=== PATIENT | male | born 1970 ===

== ENCOUNTER 2017-01-11 19:33 | Inpatient (IN) | payer SELFPAY ==
--- NOTE | 2017-01-11 20:24 | ED PDOC ---
HPI: Chest Pain Time Seen by Provider: 01/11/17 20:12 Chief Complaint (Nursing): Chest Pain Chief Complaint (Provider): chest pain History Per: Patient History/Exam Limitations: no limitations Onset/Duration Of Symptoms: Hrs (2) Current Symptoms Are (Timing): Still Present Quality: Pressure Exacerbating Factors: None Additional History Per: Patient Additional Complaint(s): 46 y/o male no past medical history presents with left-sided chest pressure x 2 hours. Patient states he was shoveling snow to dig his car out when symptoms started, along with feeling light-headed and shortness of breath. Patient states he then rested up against the car and "blacked out" for a few moments; states he did not fall to ground. Denies headache, dizziness, fever, nausea/ vomiting, palpitations, recent travel, leg pain/swelling, recent URI symptoms. Past Medical History Reviewed: Historical Data, Nursing Documentation, Vital Signs Vital Signs: Last Vital Signs Temp 98.3 F 01/11/17 23:05 Pulse 90 01/11/17 23:05 Resp 20 01/11/17 23:05 BP 104/67 01/11/17 23:05 Pulse Ox 96 01/11/17 23:05 - Medical History PMH: No Chronic Diseases - Family History Family History: States: Unknown Family Hx - Living Arrangements Living Arrangements: With Family - Social History Current smoker - smoking cessation education provided: No Alcohol: None Drugs: Denies - Home Medications Home Medications: Ambulatory Orders Medication Instructions Recorded No Known Home Med 01/11/17 - Allergies Allergies/Adverse Reactions: Allergies Allergy/AdvReac Type Severity Reaction Status Date / Time No Known Allergies Allergy Verified 01/11/17 19:39 Review of Systems ROS Statement: Except As Marked, All Systems Reviewed And Found Negative Cardiovascular: Positive for: Chest Pain Respiratory: Positive for: Shortness of Breath Physical Exam - Reviewed Nursing Documentation Reviewed: Yes Vital Signs Reviewed: Yes - Physical Exam Appears: Positive for: Well, Non-toxic, Uncomfortable Head Exam: Positive for: ATRAUMATIC, NORMAL INSPECTION, NORMOCEPHALIC Skin: Positive for: Normal Color Eye Exam: Positive for: Normal appearance ENT: Positive for: Normal ENT Inspection Cardiovascular/Chest: Positive for: Regular Rate, Rhythm Respiratory: Positive for: Normal Breath Sounds Gastrointestinal/Abdominal: Positive for: Normal Exam Back: Positive for: Normal Inspection Extremity: Positive for: Normal ROM Neurologic/Psych: Positive for: Alert, Oriented - Laboratory Results Result Diagrams: 01/11/17 21:00 01/11/17 21:00 - ECG ECG: Positive for: Viewed By Me (reviewed by ED attending) ECG Rhythm: Positive for: Sinus Rhythm O2 Sat by Pulse Oximetry: 99 - Radiology X-Ray: Viewed By Me X-Ray Interpretation: No Acute Disease - Progress ED Course And Treament: labs, ekg, chest xray, ASA PO, nitro SL On re-eval, patient resting comfortably; states pain improved. Case discussed with ED attending Dr. Randhawa, who agrees with plan to place in observation. Case discussed with Dr. Vergara, Hospitalist on-call, for admission. Disposition - Clinical Impression Clinical Impression: Chest pain, Syncope - Patient ED Disposition Is Patient to be Admitted: Yes - Disposition Disposition Time: 22:27 Condition: FAIR - Pt Status Changed To: Hospital Disposition Of: Observation
[2017-01-11 21:09] LABS: BASO % 0.3 % (0.0-2.0); EOS % 0.1 % (0.0-4.0); LYMPH # 1.3 K/uL (1.0-4.3); LYMPH % 8.9 % (20.0-40.0); MEAN CORPUSCULAR HEMOGLOBIN 30.1 pg (27.0-31.0); MEAN PLATELET VOLUME 8.1 fl (7.2-11.7); MONO # 0.7 K/uL (0.0-0.8); MONO % 4.9 % (0.0-10.0); NEUT # 12.5 K/uL (1.8-7.0); NEUT % 85.8 % (50.0-75.0); PLATELET COUNT 238 K/uL (130-400); RED CELL DISTRIBUTION WIDTH 13.5 % (11.5-14.5); WHITE BLOOD COUNT 14.5 K/uL (4.8-10.8)
[2017-01-11 21:20] LABS: ALB/GLOB RATIO 1.1 (1.0-2.1); ALKALINE PHOSPHATASE 118 U/L (38-126); ALT/SGPT 39 U/L (21-72); AST/SGOT 27 U/L (17-59); BILIRUBIN,TOTAL 0.5 mg/dl (0.2-1.3); BLOOD UREA NITROGEN 12 mg/dl (9-20); CALCIUM 9.7 mg/dL (8.4-10.2); CARBON DIOXIDE 23 mmol/L (22-30); CHLORIDE 102 mmol/L (98-107); GFR AFRICAN-AMERICAN > 60; GLUCOSE,RANDOM 113 mg/dL (75-110); SODIUM 138 mmol/l (132-148); TOTAL PROTEIN 8.5 G/DL (6.3-8.2)
[2017-01-11 22:43] VITALS: BMI 30.9
--- NOTE | 2017-01-11 22:51 | CP.PCM.HP ---
History of Present Illness - History of Present Illness History of Present Illness: CC: CP, LOC HPI: This is a 46 y/o male with no chronic medical history who comes in with L sided CP which started about 2 hours ago while he was shovelling snow. He noted that while he was shovelling, he also had LH and SOB. He stopped to rest while shovelling and may have had a brief episode of LOC, though no fall or head trauma. never had symptoms like this before. Denies f/c/n/v/d. Never had these symptoms before. ROS: 14 systems reviewed, negative other than HPI MHx: None SHx: Allergies: NKDA Medications: None Family Hx: no relevant findings on review Social Hx: Lives Present on Admission - Present on Admission Any Indicators Present on Admission: No Past Patient History - Past Social History Alcohol: None Drugs: Denies - PSYCHIATRIC Hx Substance Use: No Meds Allergies/Adverse Reactions: Allergies Allergy/AdvReac Type Severity Reaction Status Date / Time No Known Allergies Allergy Verified 01/11/17 19:39 Physical Exam - Constitutional Appears: No Acute Distress - Head Exam Head Exam: ATRAUMATIC, NORMOCEPHALIC - Eye Exam Eye Exam: EOMI, PERRL - ENT Exam ENT Exam: Mucous Membranes Moist - Neck Exam Neck exam: Positive for: Full Rom - Respiratory Exam Respiratory Exam: Clear to Auscultation Bilateral, NORMAL BREATHING PATTERN - Cardiovascular Exam Cardiovascular Exam: REGULAR RHYTHM, +S1, +S2 - GI/Abdominal Exam GI & Abdominal Exam: Hyperactive Bowel Sounds, Soft - Extremities Exam Extremities exam: Positive for: full ROM, normal inspection - Neurological Exam Neurological exam: Alert, Motor Sensory Deficit, Oriented x3 - Psychiatric Exam Psychiatric exam: Normal Affect, Normal Mood - Skin Skin Exam: Dry, Warm Results - Vital Signs Recent Vital Signs: Last Vital Signs Temp 97.5 F L 01/11/17 19:39 Pulse 90 01/11/17 19:39 Resp 16 01/11/17 19:39 BP 109/70 01/11/17 19:39 Pulse Ox 99 01/11/17 22:30 - Labs Result Diagrams: 01/11/17 21:00 01/11/17 21:00 Labs: Laboratory Results - last 24 hr 01/11/17 21:00 WBC 14.5 H RBC 5.35 Hgb 16.1 Hct 46.0 MCV 86.0 MCH 30.1 MCHC 35.0 RDW 13.5 Plt Count 238 MPV 8.1 Neut % (Auto) 85.8 H Lymph % (Auto) 8.9 L Bos[place] % (Auto) 4.9 Eos % (Auto) 0.1 Baso % (Auto) 0.3 Neut # 12.5 H Lymph # 1.3 Bosque # 0.7 Eos # 0.0 Baso # 0.0 Sodium 138 Potassium 4.0 Chloride 102 Carbon Dioxide 23 Anion Gap 16 BUN 12 Creatinine 1.3 Est GFR ( Amer) > 60 Est GFR (Non-Af Amer) 60 Random Glucose 113 H Calcium 9.7 Total Bilirubin 0.5 AST 27 ALT 39 Alkaline Phosphatase 118 Troponin I 0.0330 Total Protein 8.5 H Albumin 4.5 Globulin 4.0 H Albumin/Globulin Ratio 1.1 - EKG Data EKG Interpreted by: Myself EKG shows normal: Sinus rhythm Rate: Normal - EKG Data EKG comments: appears to have some diffuse STD in lateral leads Assessment & Plan (1) Chest pain Assessment and Plan: 46 y/o male with no MHx presenting with CP and LOC in setting of shovelling snow. -Admit to tele obs -Serial trops, Lipids in AM -Repeat EKG in AM -Echo in AM -ASA daily, SLNG PRN -SCDs for DVT PPx Status: Acute (2) Syncope Status: Acute (3) DVT prophylaxis Status: Acute
[2017-01-11 22:55] LABS: NEUTROPHIL 83 % (42-75); TOTAL CELLS COUNTED 100
[2017-01-11 22:59] LABS: LARGE PLATELETS PRESENT
[2017-01-12 06:39] LABS: BASO % 0.1 % (0.0-2.0); EOS % 0.1 % (0.0-4.0); HEMATOCRIT 43.6 % (35.0-51.0); LYMPH # 1.6 K/uL (1.0-4.3); LYMPH % 13.1 % (20.0-40.0); MEAN CELL VOLUME 87.7 fl (80.0-94.0); MEAN CORPUSCULAR HEMOGLOBIN 29.7 pg (27.0-31.0); MEAN CORPUSCULAR HGB CONC 33.9 g/dL (33.0-37.0); MEAN PLATELET VOLUME 8.5 fl (7.2-11.7); MONO # 0.7 K/uL (0.0-0.8); MONO % 5.8 % (0.0-10.0); NEUT # 9.7 K/uL (1.8-7.0); NEUT % 80.9 % (50.0-75.0); NRBC % 0.1 % (0.0-0.0); RED CELL DISTRIBUTION WIDTH 13.8 % (11.5-14.5)
[2017-01-12 06:52] LABS: BLOOD UREA NITROGEN 13 mg/dl (9-20); CALCIUM 9.1 mg/dL (8.4-10.2); CARBON DIOXIDE 20 mmol/L (22-30); CHLORIDE 105 mmol/L (98-107); CHOLESTEROL 236 mg/dL (0-199); GFR AFRICAN-AMERICAN > 60; GLUCOSE,RANDOM 127 mg/dL (75-110); POTASSIUM 4.4 MMOL/L (3.6-5.0); SODIUM 143 mmol/l (132-148)
[2017-01-12] MEDS ORDERED: Enoxaparin 100 mg Syringe SC STA (07:35)
--- NOTE | 2017-01-12 08:23 | CP.PCM.CON ---
History of Present Illness - History of Present Illness History of Present Illness: HPI: This is a 46 y/o male with no chronic medical history who comes in with L sided CP which started about 2 hours ago while he was shovelling snow. He noted that while he was shovelling, he also had LH and SOB. He stopped to rest while shovelling and may have had a brief episode of LOC, though no fall or head trauma. never had symptoms like this before. Denies f/c/n/v/d. Never had these symptoms before. Troponin: + 7.30 EKG: ? Inferior wall changes The patient's Hx is significant and should have catherization Spoke with Dr Mason Past Patient History - Past Medical History & Family History Past Medical History?: No - Past Social History Smoking Status: Never Smoked - MUSCULOSKELETAL/RHEUMATOLOGICAL Hx Falls: No - PSYCHIATRIC Hx Substance Use: No Meds Allergies/Adverse Reactions: Allergies Allergy/AdvReac Type Severity Reaction Status Date / Time No Known Allergies Allergy Verified 01/11/17 19:39 - Medications Medications: Current Medications Acetaminophen (Tylenol 325mg Tab) 650 mg PO Q6 PRN PRN Reason: Pain, Mild (1-3) Aspirin (Aspirin) 325 mg PO DAILY [facility] Nitroglycerin (Nitrostat Sl Tab) 0.4 mg SL Q5M PRN PRN Reason: chest pain Results - Vital Signs Recent Vital Signs: Last Vital Signs Temp 98.6 F 01/12/17 05:00 Pulse 99 H 01/12/17 05:00 Resp 20 01/12/17 05:00 BP 99/63 L 01/12/17 05:00 Pulse Ox 98 01/12/17 05:00 - Labs Result Diagrams: 01/12/17 05:40 01/12/17 05:40 Labs: Laboratory Results - last 24 hr 01/12/17 05:40 WBC 12.0 H RBC 4.97 Hgb 14.8 Hct 43.6 MCV 87.7 MCH 29.7 MCHC 33.9 RDW 13.8 Plt Count 245 MPV 8.5 Neut % (Auto) 80.9 H Lymph % (Auto) 13.1 L Wolfe % (Auto) 5.8 Eos % (Auto) 0.1 Baso % (Auto) 0.1 Neut # 9.7 H Lymph # 1.6 Wolfe # 0.7 Eos # 0.0 Baso # 0.0 Sodium 143 Potassium 4.4 Chloride 105 Carbon Dioxide 20 L Anion Gap 22 H BUN 13 Creatinine 1.1 Est GFR ( Amer) > 60 Est GFR (Non-Af Amer) > 60 Random Glucose 127 H Calcium 9.1 Troponin I 7.3000 H* Triglycerides 437 H Cholesterol 236 H LDL Cholesterol Direct 58 HDL Cholesterol 33
--- NOTE | 2017-01-12 09:01 | CP.PCM.PN ---
Subjective - Date & Time of Evaluation Date of Evaluation: 01/12/17 Time of Evaluation: 08:00 - Subjective Subjective: mild chest pain , better than on admission no palpitation no SOB no abd pain Discussed test results- , discussed need for cardiac cath Objective - Vital Signs/Intake and Output Vital Signs (last 24 hours): Temp Pulse Resp BP Pulse Ox 98.6 F 77 18 100/62 96 01/12/17 08:15 01/12/17 08:30 01/12/17 08:15 01/12/17 08:30 01/12/17 08:15 - Medications Medications: Current Medications Acetaminophen (Tylenol 325mg Tab) 650 mg PO Q6 PRN PRN Reason: Pain, Mild (1-3) Aspirin (Aspirin) 325 mg PO DAILY [facility] Last Admin: 01/12/17 08:48 Dose: 325 mg Nitroglycerin (Nitrostat Sl Tab) 0.4 mg SL Q5M PRN PRN Reason: chest pain - Labs Labs: 01/12/17 05:40 01/12/17 05:40 - Constitutional Appears: No Acute Distress - Head Exam Head Exam: ATRAUMATIC, NORMAL INSPECTION, NORMOCEPHALIC - Eye Exam Eye Exam: EOMI, Normal appearance, PERRL Pupil Exam: NORMAL ACCOMODATION - ENT Exam ENT Exam: Mucous Membranes Moist, Normal External Ear Exam - Neck Exam Neck Exam: Full ROM. absent: Meningismus - Respiratory Exam Respiratory Exam: NORMAL BREATHING PATTERN. absent: Respiratory Distress - Cardiovascular Exam Cardiovascular Exam: REGULAR RHYTHM, +S1, +S2 - GI/Abdominal Exam GI & Abdominal Exam: Soft, Normal Bowel Sounds. absent: Tenderness - Extremities Exam Extremities Exam: Full ROM, Normal Capillary Refill. absent: Calf Tenderness, Pedal Edema - Back Exam Back Exam: Full ROM, NORMAL INSPECTION. absent: CVA tenderness (L), CVA tenderness (R) - Neurological Exam Neurological Exam: Alert, Awake, CN II-XII Intact, Normal Gait, Oriented x3 Neuro motor strength exam: Left Upper Extremity: 5, Right Upper Extremity: 5, Left Lower Extremity: 5, Right Lower Extremity: 5 - Psychiatric Exam Psychiatric exam: Normal Affect, Normal Mood - Skin Skin Exam: Dry, Normal Color, Warm Assessment and Plan (1) NSTEMI (non-ST elevated myocardial infarction) Status: Acute - Assessment and Plan (Free Text) Assessment: 46 y/o gent, no significant PMH, came in bec of chest pain after shoveling snow . EKG showed ST depression inferior leads, Troponin elevation to 7 and hypertriglyceridemia. 1. NSTEMI - 2nd Trop = 7 -Cardio consulted- discussed case with dr Edgar, - rec Cardiac cath . Dr Erica Ellis consulted - started on ASA, loaded with Plavix, Lovenox therapeutic dose , high dose statin, and BB - plan for Cardiac cath in am
--- NOTE | 2017-01-12 10:08 | RAD ---
HISTORY: chest pain COMPARISON: None available. TECHNIQUE: Chest, one view. FINDINGS: LUNGS: No focal consolidation. Please note that chest x-ray has limited sensitivity for the detection of pulmonary masses. PLEURA: No significant pleural effusion identified. No definite pneumothorax . CARDIOVASCULAR: Heart size appears within normal limits. The aorta appears uncoiled, likely exaggerated by patient obliquity. OSSEOUS STRUCTURES: No acute osseous abnormality identified. VISUALIZED UPPER ABDOMEN: Unremarkable. OTHER FINDINGS: None. IMPRESSION: No focal consolidation, significant pleural effusion, or definite pneumothorax identified.
--- NOTE | 2017-01-12 15:02 | CP.PCM.PN ---
Subjective - Date & Time of Evaluation Date of Evaluation: 01/12/17 Time of Evaluation: 15:00 - Subjective Subjective: patient seen/examined. No PMH presents with angina. second troponin 7. initial EKG shows sinus rhythm with inferior infarction. currently chest pain free. Plan: ASA/Plavix/statin/lovenox. NPO after midnight for cardiac cath tomorrow. Objective - Vital Signs/Intake and Output Vital Signs (last 24 hours): Temp Pulse Resp BP Pulse Ox 98.3 F 75 18 114/74 97 01/12/17 12:00 01/12/17 12:00 01/12/17 12:00 01/12/17 12:00 01/12/17 12:00 - Medications Medications: Current Medications Acetaminophen (Tylenol 325mg Tab) 650 mg PO Q6 PRN PRN Reason: Pain, Mild (1-3) Aspirin (Aspirin) 325 mg PO DAILY [facility] Last Admin: 01/12/17 08:48 Dose: 325 mg Clopidogrel Bisulfate (Plavix) 75 mg PO DAILY [facility] Enoxaparin Sodium (Lovenox) 90 mg SC Q12 SYLVIE PRN Reason: Protocol Famotidine (Pepcid) 20 mg PO BID [facility] Last Admin: 01/12/17 11:06 Dose: 20 mg Nitroglycerin (Nitrostat Sl Tab) 0.4 mg SL Q5M PRN PRN Reason: chest pain - Labs Labs: PT 11.2 SECONDS (9.6-11.2) 01/12/17 12:59 INR 1.08 (0.92-1.08) 01/12/17 12:59 APTT 31.0 SECONDS (23.3-32.5) 01/12/17 12:59
[2017-01-12] MEDS ORDERED: Hydrocortisone- 200 MG in Sodium Chloride 0.9% 100 ML IV STA (18:20)
[2017-01-12] MEDS ORDERED: Enoxaparin 100 mg Syringe SC SCH (21:00)
[2017-01-12 23:36] VITALS: RESP 20
[2017-01-13] MEDS ORDERED: Hydrocortisone- 200 MG in Sodium Chloride 0.9% 100 ML IV ONE ×2 (00:01→06:00)
[2017-01-13] MEDS ORDERED: DiphenhydrAMINE 50 mg/ml Inj IVP ONE (06:30)
[2017-01-13 07:03] LABS: HEMATOCRIT 44.9 % (35.0-51.0); MEAN CELL VOLUME 89.3 fl (80.0-94.0); MEAN CORPUSCULAR HEMOGLOBIN 30.3 pg (27.0-31.0); RED CELL DISTRIBUTION WIDTH 13.6 % (11.5-14.5); WHITE BLOOD COUNT 10.1 K/uL (4.8-10.8)
[2017-01-13 08:19] LABS: BLOOD UREA NITROGEN 19 mg/dl (9-20); CALCIUM 9.1 mg/dL (8.4-10.2); CARBON DIOXIDE 23 mmol/L (22-30); CHLORIDE 105 mmol/L (98-107); GFR AFRICAN-AMERICAN > 60; GLUCOSE,RANDOM 148 mg/dL (75-110); POTASSIUM 4.3 MMOL/L (3.6-5.0); SODIUM 143 mmol/l (132-148)
--- NOTE | 2017-01-13 15:07 | CP.PCM.DIS ---
Provider - Provider Date of Admission: 01/12/17 10:40 Attending physician: Ana Vergara MD Primary care physician: NO FAMILY PROVIDER Consults: Cardiology Dr. Sonal Ellis Time Spent in preparation of Discharge (in minutes): 20 Hospital Course - Lab Results Lab Results: Most Recent Lab Values WBC 10.1 K/uL (4.8-10.8) 01/13/17 05:45 RBC 5.03 Mil/uL (4.40-5.90) 01/13/17 05:45 Hgb 15.2 g/dL (12.0-18.0) 01/13/17 05:45 Hct 44.9 % (35.0-51.0) 01/13/17 05:45 MCV 89.3 fl (80.0-94.0) 01/13/17 05:45 MCH 30.3 pg (27.0-31.0) 01/13/17 05:45 MCHC 34.0 g/dL (33.0-37.0) 01/13/17 05:45 RDW 13.6 % (11.5-14.5) 01/13/17 05:45 Plt Count 228 K/uL (130-400) 01/13/17 05:45 MPV 8.5 fl (7.2-11.7) 01/12/17 05:40 Neut % (Auto) 80.9 % (50.0-75.0) H 01/12/17 05:40 Lymph % (Auto) 13.1 % (20.0-40.0) L 01/12/17 05:40 [place] % (Auto) 5.8 % (0.0-10.0) 01/12/17 05:40 Eos % (Auto) 0.1 % (0.0-4.0) 01/12/17 05:40 Baso % (Auto) 0.1 % (0.0-2.0) 01/12/17 05:40 Neut # 9.7 K/uL (1.8-7.0) H 01/12/17 05:40 Lymph # 1.6 K/uL (1.0-4.3) 01/12/17 05:40 [place] # 0.7 K/uL (0.0-0.8) 01/12/17 05:40 Eos # 0.0 K/uL (0.0-0.7) 01/12/17 05:40 Baso # 0.0 K/uL (0.0-0.2) 01/12/17 05:40 Neutrophils % (Manual) 83 % (42-75) H 01/11/17 21:00 Band Neutrophils % 2 % (0-2) 01/11/17 21:00 Lymphocytes % (Manual) 11 % (20-50) L 01/11/17 21:00 Monocytes % (Manual) 4 % (0-10) 01/11/17 21:00 Platelet Estimate Normal (NORMAL) 01/11/17 21:00 Large Platelets Present 01/11/17 21:00 PT 11.2 SECONDS (9.6-11.2) 01/12/17 12:59 INR 1.08 (0.92-1.08) 01/12/17 12:59 APTT 31.0 SECONDS (23.3-32.5) 01/12/17 12:59 Sodium 143 mmol/l (132-148) 01/13/17 05:45 Potassium 4.3 MMOL/L (3.6-5.0) 01/13/17 05:45 Chloride 105 mmol/L (98-107) 01/13/17 05:45 Carbon Dioxide 23 mmol/L (22-30) 01/13/17 05:45 Anion Gap 20 (10-20) 01/13/17 05:45 BUN 19 mg/dl (9-20) 01/13/17 05:45 Creatinine 1.3 mg/dL (0.8-1.5) 01/13/17 05:45 Est GFR ( Amer) > 60 01/13/17 05:45 Est GFR (Non-Af Amer) 60 01/13/17 05:45 Random Glucose 148 mg/dL (75-110) H 01/13/17 05:45 Calcium 9.1 mg/dL (8.4-10.2) 01/13/17 05:45 Total Bilirubin 0.5 mg/dl (0.2-1.3) 01/11/17 21:00 AST 27 U/L (17-59) 01/11/17 21:00 ALT 39 U/L (21-72) 01/11/17 21:00 Alkaline Phosphatase 118 U/L (38-126) 01/11/17 21:00 Troponin I 15.2000 ng/mL (0.00-0.120) H* 01/13/17 05:45 Total Protein 8.5 G/DL (6.3-8.2) H 01/11/17 21:00 Albumin 4.5 g/dL (3.5-5.0) 01/11/17 21:00 Globulin 4.0 gm/dL (2.2-3.9) H 01/11/17 21:00 Albumin/Globulin Ratio 1.1 (1.0-2.1) 01/11/17 21:00 Triglycerides 437 mg/DL (0-149) H 01/12/17 05:40 Cholesterol 236 mg/dL (0-199) H 01/12/17 05:40 LDL Cholesterol Direct 58 mg/dL (0-129) 01/12/17 05:40 HDL Cholesterol 33 MG/DL (30-70) 01/12/17 05:40 - Hospital Course Hospital Course: 46 year old male who was admitted on 01/11/17 for evaluation of Left Sided Chest Pain after he shoveled snow. His troponin #2 elevated at 7.3 and troponin #3 elevated 25.7. He was taken to [facility] for Cardiac Catheterization morning of 01/13/17 at 7 AM before I could I see him. Nurse Julianne on informed me that the patient was transferred from [facility] [place] [facility] was found to have 100% occlusion of RCA and would not be returning to [facility]. Jose Brizuela D.O. Discharge Exam - Head Exam Head Exam: ATRAUMATIC, NORMAL INSPECTION, NORMOCEPHALIC Discharge Plan - Follow Up Plan Condition: FAIR Disposition: HOME/ ROUTINE Referrals: FAMILY PROVIDER,NO [Primary Care Provider] -
[2017-01-13 16:58] VITALS: BP 97/61; PULSE 66; TEMP 98.5; O2SAT 100
--- NOTE | 2017-01-13 17:57 | CARD ---
APPROVED REPORT EXAM: Two-dimensional and M-mode echocardiogram with Doppler and color Doppler. Other Information Quality : GoodRhythm : NSR INDICATION Chest Pain 2D DIMENSIONS IVSd0.76 (0.7-1.1cm)LVDd3.77 (3.9-5.9cm) LVOT Diameter2.20 (1.8-2.4cm)PWd0.63 (0.7-1.1cm) IVSs1.23 (0.8-1.2cm)LVDs2.93 (2.5-4.0cm) FS (%) 22.2 %PWs1.04 (0.8-1.2cm) M-Mode DIMENSIONS Left Atrium (MM)3.81 (2.5-4.0cm)IVSd0.83 (0.7-1.1cm) Aortic Root2.76 (2.2-3.7cm)LVDd4.96 (4.0-5.6cm) Aortic Cusp Exc.1.93 (1.5-2.0cm)PWd0.83 (0.7-1.1cm) IVSs1.13 cmFS (%) 29 % LVDs3.53 (2.0-3.8cm)PWs1.19 cm Mitral Valve MV E Kpsgcyui96.5cm/sMV DECEL [id number] A Pcdzumbe35.9cm/s MV LWO32zeY/A ratio1.1MVA (PHT)4.58cm2 TDI Lateral E' Peak V9.61cm/sMedial E' Peak V9.04cm/sE/Lateral E'6.9 E/Medial E'7.4 Tricuspid Valve TR Peak [id number]/sRAP [id number] Peak Gr.16mmHg [id number] LEFT VENTRICLE The left ventricle is normal size. There is normal left ventricular wall thickness. The left ventricular function is normal. The left ventricular ejection fraction is 55% There is normal LV segmental wall motion. The left ventricular diastolic function is normal. No left ventricle thrombus noted on this study. There is no ventricular septal defect visualized. There is no left ventricular aneurysm. There is no mass noted in the left ventricle. RIGHT VENTRICLE The right ventricle is mildly dilated. There is normal right ventricular wall thickness. Systolic function is mildly reduced. ATRIA The left atrium size is normal. The right atrium size is normal. The interatrial septum is intact with no evidence for an atrial septal defect. AORTIC VALVE The aortic valve is normal in structure and function. No aortic regurgitation is present. There is no aortic valvular stenosis. There is no aortic valvular vegetation. MITRAL VALVE The mitral valve is normal in structure and function. There is no evidence of mitral valve prolapse. There is no mitral valve stenosis. Mitral regurgitation is mild. TRICUSPID VALVE The tricuspid valve is normal in structure and function. There is mild to moderate tricuspid regurgitation. Right ventricular systolic pressure is estimated at less than 30 mmHg. There is no tricuspid valve prolapse or vegetation. There is no tricuspid valve stenosis. PULMONIC VALVE The pulmonary valve is normal in structure and function. There is no pulmonic valvular regurgitation. There is no pulmonic valvular stenosis. GREAT VESSELS The aortic root is normal in size. The ascending aorta is normal in size. IVC Doppler evaluation reveals systolic blunting. PERICARDIAL EFFUSION The pericardium appears normal. There is no pleural effusion. <Conclusion> Normal LV Systolic Function LVEF 55% Mild RV Enlargement /Mild RV Hypokinesis Mild Mitral Regurgitation
--- NOTE | 2017-01-13 19:01 | CARD ---
APPROVED REPORT EKG Measurement Heart [id number] <Conclusion> Normal sinus rhythm Inferior infarct, age undetermined Abnormal ECG
--- NOTE | 2017-01-13 19:03 | CARD ---
APPROVED REPORT EKG Measurement Heart [id number] LA [id number] <Conclusion> Normal sinus rhythm ST depression, consider subendocardial injury Abnormal ECG
== END 2017-01-13 07:07 | disposition short-term general hospital (02) | DRG 282 ==
LOC: H.ER 19:33 → H.ERHOLD 22:28 → H.TEL 23:49 → OBSVTOIN 01-12 10:40
PROVIDERS: ADMIT Internal Medicine; ATTEND Internal Medicine
DX: I21.4 Non-ST elevation (NSTEMI) myocardial infarction (principal); I25.82 Chronic total occlusion of coronary artery; E78.1 Pure hyperglyceridemia; Z87.442 Personal history of urinary calculi; Z91.013 Allergy to seafood